=== PATIENT | female | born 1955 | race Caucasian/White ===

== ENCOUNTER 2017-11-16 09:00 | Inpatient (IN) | payer OTHER ==
[~2017-11-16] VITALS: Ht 162.6 cm; Wt 74.8 kg
[2017-11-16] MEDS ORDERED: NITROFURANTOIN50 MG PO (11:14)
[2017-11-16] MEDS ORDERED: URISTAT95 MG PO (11:16)
[2017-11-27] MEDS ORDERED: LEVAQUIN500 MG PO (14:30)
[2017-11-27] MEDS ORDERED: AZO STANDARD95 MG PO (14:31)
[2017-11-27] MEDS ORDERED: ULTRACET PO (14:31)
[2017-11-27] MEDS ORDERED: INTESTINEX680 M1 PO (14:32)
== END 2017-11-27 15:52 | disposition home or self-care (01) | DRG 331 ==
LOC: SURH 11-18 09:00 → O/R 11-24 06:22 → SURG 11-24 06:22
PROVIDERS: Surgery
PROC: 07TC4ZZ Resection of Pelvis Lymphatic, Percutaneous Endoscopic Approach (ICD-10-PCS; 2017-11-24)
PROC: 0DTF4ZZ Resection of Right Large Intestine, Percutaneous Endoscopic Approach (ICD-10-PCS; principal; 2017-11-24 04:00)
DX: C18.2 Malignant neoplasm of ascending colon (principal)